=== PATIENT | male | born 1955 | race Caucasian/White ===

== ENCOUNTER 2017-08-12 09:16 | Day surgery (SDC) | payer BC ==
[2017-08-12 09:56] VITALS: BMI 32.4
[2017-08-12] MEDS ORDERED: Midazolam 2 MG/2 ML VIAL ONE (11:11)
[2017-08-12] MEDS ORDERED: Propofol 10 mg/ml Inj (20 ML) ONE (11:12)
--- NOTE | 2017-08-12 12:03 | CP.SDSHP ---
Same Day Surgery H & P - History Proposed Procedure: CT guided right lung mass biopsy Pre-Op Diagnosis: COlon cancer - Allergies Allergies: Allergies No Known Allergies Allergy (Verified 08/12/17 09:58) - Physical Exam Mental Status: Alert & Oriented x3 - Impression Impression: Pt with a 5 cm right lung mass referred for CT guided core biopsy. Plan CT guided biopsy. Informed consent obtained. Pt. Evaluated Today:Candidate for Anesthesia & Procedure: Yes (ASA 3 Malampati 3) Short Stay Discharge - Short Stay Discharge Admitting Diagnosis/Reason for Visit: COLON CA Disposition: HOME/ ROUTINE
--- NOTE | 2017-08-12 12:06 | PCM.SURG1 ---
Surgeon's Initial Post Op Note - Surgeon's Notes Surgeon: Gordon Shanks MD Menagerie Caretaker: NONE Type of Anesthesia: IV Sedation Pre-Operative Diagnosis: LUng mass Operative Findings: CT showed a 5 cm right lung mass. CT guided core biosy performed. No pneumothorax. Post-Operative Diagnosis: Lung mass Operation Performed: CT guided core biopsy. Two 20-g core specimen obtained. Specimen/Specimens Removed: 20 g core x 2 Estimated Blood Loss: EBL {In ML}: 0 Blood Products Given: N/A Drains Used: No Drains Post-Op Condition: Good Date of Surgery/Procedure: 08/12/17 Time of Surgery/Procedure: 12:00
--- NOTE | 2017-08-12 12:14 | CT ---
PROCEDURE: Date of procedure: 08/12/2017 Procedure: 1. CT-guided lung mass biopsy, CPT [address] Guidance for biopsy, [id number] Medications: The patient was sedated by anesthesiologist along with physiologic monitoring. HISTORY: Right lung mass TECHNIQUE: Following informed consent, the Pt's chest was marked. The Pt was placed prone on the CT table and procedure time out was performed. A noncontrast CT scan was performed. Noncontrast CT scan confirmed the presence of a peripheral 5 cm mass. A skin localizer was placed on the patient's right back and a repeat CT scan was performed. The skin was marked, prepped, and draped in the usual sterile fashion. After the skin was anesthetized with lidocaine and the patient sedated by the anesthesiologist, a 20 gauge core needle was advanced percutaneously under direct CT guidance into the mass. Upon confirmation of needle position, two 20-gauge core specimens were obtained and sent for routine pathology. The needle was removed and a xeroform dressing was applied. A post biopsy CT scan showed no pneumothorax. IMPRESSION: CT guided core biopsy right lung mass.
--- NOTE | 2017-08-12 14:46 | RAD ---
PROCEDURE: CHEST RADIOGRAPH, 1 VIEW HISTORY: Status post right lung mass biopsy COMPARISON: Comparison was geriatric assistant CT guided lung biopsy image FINDINGS: LUNGS: Large posterior right mass projecting over the right hilum renoted. No interval pneumothorax appreciated PLEURA: No pneumothorax or pleural fluid seen. CARDIOVASCULAR: Cardiomegaly-similar OSSEOUS STRUCTURES: Thoracic spondylosis. VISUALIZED UPPER ABDOMEN: Normal. OTHER FINDINGS: None. IMPRESSION: No interval pneumothorax. Known right lung mass
--- NOTE | 2017-08-15 04:17 | CARD ---
APPROVED REPORT EKG Measurement Heart [id number] <Conclusion> Sinus rhythm with fusion complexes Otherwise normal ECG
== END 2017-08-12 13:50 | disposition home or self-care (01) ==
LOC: C.CATHLAB 09:16
PROVIDERS: ATTEND Radiology Vascular & Interventional Radiology
DX: C18.9 Malignant neoplasm of colon, unspecified (principal)
CPT/HCPCS: 32405; 71045; 77012; 88305; 93005; J2250; J3010

== ENCOUNTER 2017-08-26 08:56 | Day surgery (SDC) | payer BC ==
[2017-08-26] MEDS ORDERED: Midazolam 2 MG/2 ML VIAL ONE ×2 (09:56→10:12)
[2017-08-26] MEDS ORDERED: ceFAZolin 1 gm FROZEN Premix 1 GM/50 ML ML IVPB ONE (09:58)
[2017-08-26] MEDS ORDERED: Lidocaine 2% Inj (20ml) ONE (10:01)
[2017-08-26] MEDS ORDERED: Lidocaine 1% w Epi 1:100,000 Inj ONE (10:02)
[2017-08-26] MEDS ORDERED: Lidocaine 2% w Epi 1:200,000 Pf Inj ONE (10:02)
[2017-08-26] MEDS ORDERED: Propofol 10 mg/ml Inj (20 ML) ONE (10:12)
--- NOTE | 2017-08-26 11:02 | CP.SDSHP ---
Same Day Surgery H & P - History Proposed Procedure: Port placement Pre-Op Diagnosis: Colon cancer - Allergies Allergies: Allergies No Known Allergies Allergy (Verified 08/12/17 09:58) - Physical Exam Mental Status: Alert & Oriented x3 Neuro: WNL Heart: WNL Lungs: WNL GI: WNL - Impression Impression: Pt with colon cancer referred for port placement. Informed consent obtained. Pt. Evaluated Today:Candidate for Anesthesia & Procedure: Yes (ASA 3 Malampati 3) - Date & Time Date: 08/26/17 Time: 10:05 Short Stay Discharge - Short Stay Discharge Admitting Diagnosis/Reason for Visit: COLON CA Disposition: HOME/ ROUTINE
[2017-08-26 11:03] VITALS: BMI 26.5
--- NOTE | 2017-08-26 11:03 | PCM.SURG1 ---
Surgeon's Initial Post Op Note - Surgeon's Notes Surgeon: Gordon Enriquez MD Supervisor Screen Printing: NONE Type of Anesthesia: IV Sedation Pre-Operative Diagnosis: Colon cancer Operative Findings: US showed a patent right IJV Post-Operative Diagnosis: Colon cancer Operation Performed: Right IJV port placement, tip is in the SVC. Specimen/Specimens Removed: none Estimated Blood Loss: EBL {In ML}: 3 Blood Products Given: N/A Drains Used: No Drains Post-Op Condition: Fair Date of Surgery/Procedure: 08/26/17 Time of Surgery/Procedure: 11:00
--- NOTE | 2017-08-26 14:03 | SPECPROC ---
PROCEDURE: Date of procedure: 08/26/2017 Procedure: 1. Placement of a right IJ port catheter with ultrasound and fluoroscopic guidance, CPT 12370 2. Catheter tip confirmation with spot radiograph in the superior vena cava. Medications: The patient was sedated anesthesiologist along with monitoring, Ancef 1 gm, Lidocaine 1% w Epinephrine Fluoroscopic time: 4.1 seconds Radiation: 0.98 mGy Blood loss: 4 cc HISTORY: Colon cancer requiring port for chemotherapy TECHNIQUE: Following informed consent the procedure time-out, patient was placed supine on the interventional table and the right neck and chest were prepped and draped in the usual sterile fashion. Ultrasound showed a compressible right internal jugular vein. After the patient was sedated by the anesthesiologist, the skin anesthetized with 1% lidocaine with epinephrine. Under direct ultrasound guidance, the right internal jugular vein was accessed with micropuncture technique. A guidewire was then advanced under fluoroscopic guidance into the superior vena cava. An image documenting ultrasound guidance for vascular access was permanently saved. The subcutaneous tissue of patient right chest was infiltrated with 1 percent lidocaine with epinephrine. A dermatotomy was made with a 15. Scalpel. The port pocket was then created with blunt dissection using a Ana clamp. The port pocket was flushed. A port catheter was then tunneled under the skin and out the venotomy site. The port catheter was flushed, advanced through a peel-away sheath, adjusted for length, and attached to the port. The port was placed in the port pocket and was secured with 2-0 SurgiPro sutures. The port was flushed and locked with heparin. The port pocket was then closed with absorbable 4-0 Polysorb sutures. The port pocket and the venotomy site were reprepped with ChloraPrep. Steri-Strips were then applied to the port incision also venotomy site. A sterile dressing was then applied. Final spot radiograph showed the right IJ port catheter with tip of the port catheter in the superior vena cava. A port is functional and ready for use. IMPRESSION: Placement of right IJ port catheter. The tip of the port is in the superior vena cava.
== END 2017-08-26 13:05 | disposition home or self-care (01) ==
LOC: C.CATHLAB 08:56
PROVIDERS: ATTEND Radiology Vascular & Interventional Radiology
DX: C18.9 Malignant neoplasm of colon, unspecified (principal)
CPT/HCPCS: 36571; 76937; 77001; C1751; J0690; J1644; J2250; J2704; J3010